=== PATIENT | female | born 1970 | race Caucasian/White ===

== ENCOUNTER 2017-11-24 16:56 | Emergency (ER) | payer OTHER ==
[~2017-11-24] VITALS: Ht 172.7 cm; Wt 63.5 kg
[~2017-11-24 16:56] MED LIST: ACETAMINOPHEN-1 EAC1 PO; BACTRIM DS TAB1 EACH PO; CIPROFLOXACIN500 M1 PO; DIFLUCAN150 MG PO; KEFLEX500 MG PO; NOHOMEMEDICATIONS; NORCO 5-325 TA1 EACH PO; NYSTATIN 1100000 U/M BUCCAL
[2017-11-24] MEDS ORDERED: TRAZODONE 150150 M1 PO (17:14)
[2017-11-24] MEDS ORDERED: HALDOL 0.5 MG0.5 MG PO (17:14)
[2017-11-24] MEDS ORDERED: RISPERDAL0.25 MG PO (17:14)
[2017-11-24 17:32] LABS: ABSOLUTE EOSINOPHILS 0.2 thou/uL (0.0-0.7); ABSOLUTE LYMPHOCYTES 1.7 thou/uL (0.8-5.3); ABSOLUTE MONOCYTES 0.5 thou/uL (0.0-1.2); ABSOLUTE NEUTROPHILS 3.7 thou/uL (1.6-8.1); BASOPHILS 0.7 %; EOSINOPHILS 2.8 %; HEMATOCRIT 38.8 % (37.0-47.0); HEMOGLOBIN 13.2 gm/dL (12.0-15.0); LYMPHOCYTES 28.3 %; MCH 31.3 pg (26.0-34.0); MCHC 34.1 g/dL (28.0-37.0); MPV 7.9 fl. (7.2-11.1); NUCLEATED RBCS 0 /100WBC; PLATELET COUNT* 191 thou/uL (150-400); POLYS 60.2 %; RBC 4.21 mil/uL (4.20-5.00); RDW-CV 13.1 % (10.5-14.5); WBC 6.2 thou/uL (4.0-11.0)
[2017-11-24 17:42] LABS: CALCIUM 8.9 mg/dL (8.5-10.1); CREATININE 0.7 mg/dL (0.6-1.3); POTASSIUM 3.9 mmol/L (3.5-5.1)
[2017-11-24 17:47] LABS: ALBUMIN 3.5 g/dL (3.4-5.0); TOTAL BILIRUBIN 0.3 mg/dL (<0.1-1.0); TOTAL PROTEIN 7.2 g/dL (6.4-8.2)
[2017-11-24 17:53] LABS: URINE BLOOD NEGATIVE (Negative); URINE CLARITY CLEAR; URINE COLOR YELLOW; URINE GLUCOSE-RANDOM NEGATIVE (Negative); URINE KETONES TRACE (Negative); URINE LEUKOCYTES NEGATIVE (Negative); URINE NITRITE NEGATIVE (Negative); URINE PROTEIN TRACE (Negative); URINE SPECIFIC GRAVITY >= 1.030 (1.005-1.030); URINE UROBILINOGEN 0.2 E.U./dl (0.2-1.0)
[2017-11-24 17:56] LABS: ICTOTEST (BILI CONFIRMATORY) Negative (Negative); URINE BILIRUBIN 1+ (Negative)
[2017-11-24 18:07] LABS: AMP/METHAMP POSITIVE (Negative); BARBITURATES Negative (Negative); BENZODIAZEPINES Negative (Negative); COCAINE Negative (Negative); METHADONE Negative (Negative); OPIATES Negative (Negative); PCP Negative (Negative); THC POSITIVE (Negative)
[2017-11-24 18:47] VITALS: BP 138/88
--- NOTE | 2017-11-25 14:40 | EKG ---
[place] [address] ELECTROCARDIOGRAM REPORT Name: EKATERINAKARYMORGAN MILLS Room: [facility]#: [id number] Admission: 11/24/17 Attend Phys: Discharge: 11/24/17 Date of : 70 Report #: [id number] THIS REPORT FOR: //name// [facility] ED Test Date: 2017-11-24 Test Time: 17:40:48 Pat Name: MORGAN CARLSON Department: Room: Gender: F Histology Specialist: MS : 1970 Requested By: Ganesh Farooq Order Number: [id number] MD: Wagner Terry Measurements Intervals [place] Rate: 87 P: 59 AK: 142 QRS: 76 QRSD: 92 T: -45 QT: 375 QTc: 451 Interpretive Statements Sinus rhythm Borderline T abnormalities, diffuse leads Baseline wander in lead(s) II,V2 No previous ECG available for comparison Electronically Signed On 11-25-2017 14:40:28 CUSTOMER ASSISTANCE REPRESENTATIVE by Wagner Terry [email or web address] <ELECTRONICALLY SIGNED> By: Wagner Terry MD, [facility] 11/25/17 1440 1740 39 Wagner Terry MD, FACC /EPI
== END 2017-11-24 18:49 | disposition home or self-care (01) ==
LOC: M.ERS 16:56
PROVIDERS: Nurse Practitioner Family
DX: S82.401A Unspecified fracture of shaft of right fibula, initial encounter for closed fracture (principal); T43.4X5A Adverse effect of butyrophenone and thiothixene neuroleptics, initial encounter; F19.10 Other psychoactive substance abuse, uncomplicated; R42 Dizziness and giddiness; F10.99 Alcohol use, unspecified with unspecified alcohol-induced disorder; Z98.890 Other specified postprocedural states; W01.0XXA Fall on same level from slipping, tripping and stumbling without subsequent striking against object, initial encounter; Y93.89 Activity, other specified; Y92.89 Other specified places as the place of occurrence of the external cause; Y99.8 Other external cause status

== ENCOUNTER 2020-06-30 23:41 | Emergency (ER) | payer OTHER ==
[~2020-06-30] VITALS: Ht 170.2 cm; Wt 63.5 kg
[~2020-06-30 23:41] MED LIST changes: +HALDOL 0.5 MG0.5 MG PO; +RISPERDAL0.25 MG PO; +TRAZODONE 150150 M1 PO
[2020-07-01] MEDS ORDERED: FLEXERIL PO (02:16)
[2020-07-01] MEDS ORDERED: HYDROCODON-ACE1 EAC8 PO (02:16)
[2020-07-01 02:49] VITALS: BP 132/74
== END 2020-07-01 02:49 | disposition home or self-care (01) ==
LOC: M.ERS 23:41
DX: S22.31XA Fracture of one rib, right side, initial encounter for closed fracture (principal); F17.210 Nicotine dependence, cigarettes, uncomplicated; W18.39XA Other fall on same level, initial encounter; Y93.89 Activity, other specified; Y92.89 Other specified places as the place of occurrence of the external cause; Y99.8 Other external cause status